=== PATIENT | female | born 1995 | race African-American/Black ===

== ENCOUNTER 2019-01-18 22:21 | Emergency (ER) | payer OTHER ==
[~2019-01-18] VITALS: Ht 175.3 cm; Wt 70.3 kg
--- NOTE | 2019-01-18 22:59 | NUR ---
ED Nurse Note: PT walked in c/o possible allergic reaction, pt states she was having panic attack after eating food that could possibly have peanuts in it, pt states she is allergic to peanut and her "tongue swells up and throat closes up". pt denies sx, and states she took benadryl 100mg prior to coming to ed. pt AA&ox4, gcs=15, skin warm and dry, resp even and unlabored on RA, airway intact, no sx allergic reaction, -n/v/d, ambulates w/ steady gait, will cont monitor. ERMD at the bedside.
[2019-01-18 23:02] VITALS: BP 140/86
--- NOTE | 2019-01-18 23:17 | Emergency Room Report ---
History of Present Illness General Chief Complaint: Allergies Source: Patient Present Illness HPI Is a 23-year-old female with a history of allergy to peanuts. She presents with chief complaint of palpitation and throat closing up. She ate at an [employer] restaurant at around 9:30. At 10:00 she felt palpitation and her throat possibly closing up. She took 100 mg of Benadryl. She has a history of anaphylaxis to peanuts before. She also history anxiety so she did not know this is a true allergy or not. She was concerned as when she is here. Denies any other complaint. No nausea no vomiting no fever chills. Fell better now. Allergies: Uncoded Allergies: PEANUTS (Allergy, Unknown, 01/18/19) Patient History Past Medical History: see triage record, old chart reviewed Past Surgical History: other Pertinent Family History: none Social History: Denies: smoking Last Menstrual Period: 12-31-2018 Now: No Immunizations: other Reviewed Nursing Documentation: PMH: Agreed; PSxH: Agreed Nursing Documentation-PMH Past Medical History: No Stated History Review of Systems Eye: Denies: eye pain, blurred vision ENT: Denies: ear pain, nose congestion, throat swelling Respiratory: Denies: cough, shortness of breath Cardiovascular: Reports: palpitations; Denies: chest pain Gastrointestinal: Denies: abdominal pain, diarrhea, nausea, vomiting Musculoskeletal: Denies: back pain, joint pain Skin: Denies: rash Neurological: Denies: headache, numbness Endocrine: Denies: increased thirst, increased urine Hematologic/Lymphatic: Denies: easy bruising All Other Systems: negative except mentioned in HPI Physical Exam Vital Signs Date Time Temp Pulse Resp B/P (MAP) Pulse Ox O2 Delivery O2 Flow Rate FiO2 01/18/19 22:34 98.1 80 16 140/86 100 Room Air vitals ryan [id number] EP Interpretation: reviewed, normal General Appearance: well appearing, no apparent distress, alert Head: normocephalic, atraumatic Eyes: bilateral eye PERRL, bilateral eye EOMI ENT: hearing grossly normal, normal pharynx Neck: full range of motion, supple, no meningismus Respiratory: chest non-tender, lungs clear, normal breath sounds Cardiovascular #1: regular rate, rhythm, no murmur Gastrointestinal: normal bowel sounds, non tender, no mass, no organomegaly, no bruit, non-distended Musculoskeletal: back normal, gait/station normal, normal range of motion Psychiatric: mood/affect normal Skin: warm/dry Medical Decision Making Diagnostic Impression: Primary Impression: Food allergy ER Course Patient presents with possible flu allergy versus anxiety. She wanted to be sure. I watched her for about an hour here without any symptoms. We'll discharge home with reassurance. She has prescription for EpiPen and is in the pharmacy already. No evidence of anaphylaxis. We'll discharge home. Last Vital Signs Date Time Temp Pulse Resp B/P (MAP) Pulse Ox O2 Delivery O2 Flow Rate FiO2 01/18/19 23:02 98.1 80 16 140/86 100 Room Air Status: improved Disposition: HOME, SELF-CARE Condition: Stable Scripts No Active Prescriptions or Reported Meds Referrals: NOT CHOSEN IPA/MD,REFERRING (PCP) Patient Instructions: Allergies Additional Instructions: Follow-up with your doctor as needed. Gett your EpiPen prescription filled. Return if worse. Franki Olmos MD Jan 18, 2019 23:17
[2019-01-18 23:31] VITALS: BP 128/67
--- NOTE | 2019-01-18 23:31 | NUR ---
ED Nurse Note: pt cleared to be d/c per ERMD, pt discharge/aftercare instruction provided, pt advised to follow up with pcp regarding allergy testing or return to ed if sx worsen or new sx develop, pt education done via discussion and handout, pt verbalized understanding and agrees with plan, left w/ all belongings, vss, resp even and unlabored on RA, airway intact. ambulatory w/ steady gait.
== END 2019-01-18 23:30 | disposition home or self-care (01) ==
LOC: EMR 22:55
DX: T78.1XXA Other adverse food reactions, not elsewhere classified, initial encounter (principal); X58.XXXA Exposure to other specified factors, initial encounter; Z91.010 Allergy to peanuts
CPT/HCPCS: 99281